=== PATIENT | female | born 1975 | race Hispanic/Latino ===

== ENCOUNTER → 2025-03-22 09:00 | Outpatient (CLI) | payer OTHER, SELFPAY ==
[2025-03-22 10:31] LABS: Add Manual Diff / Slide Review NO; Basophils Absolute Auto 0 /uL (0-100); Basophils Percent Auto 0.8 % (0-2); Eosinophils Absolute Auto 400 /uL (0-450); Eosinophils Percent Auto 5.7 % (2-4); Hematocrit 38.9 % (36-46); Hemoglobin 13.1 g/dL (12.0-16.0); Lymphocytes Absolute Auto 1600 /uL (1100-4500); Lymphocytes Percent Auto 25.3 % (25-40); Mean Corpuscular HGB Conc 33.6 % (30-36); Mean Corpuscular Hemoglobin 30.2 PG (26-34); Mean Corpuscular Volume 90.1 fL (80-100); Monocytes Absolute Auto 800 /uL (0-900); Monocytes Percent Auto 12.8 % (3-14); Neutrophils Absolute Auto 3600 /uL (1500-7000); Neutrophils Percent Auto 55.4 % (50-75); Platelet Count 250 X10^3/uL (150-400); Red Blood Cell Count 4.32 X10^6/uL (4.0-5.2); Red Cell Distribution Width 13.8 % (11.6-14.8); White Blood Cell Count 6.4 X10^3/uL (4.5-11.0)
[2025-03-22 10:49] LABS: C-Reactive Protein Quant 3.8 mg/dL (<1.0)
[2025-03-22 11:50] LABS: Erythrocyte Sedimentation Rate 46 MM/HR (0-20)
[2025-03-25 09:09] LABS: Aspergillus fumigatus IgE <0.10 kU/L (Class 0); Immunoglobulin E 74 IU/mL (6-495)
[2025-03-25 17:11] LABS: CCP Antibodies IgG/IgA 11 units (0-19)
[2025-03-26 09:36] LABS: ANA Screen, IFA Negative (.)
[2025-03-26 20:09] LABS: Antimyeloperoxidase Antibodies <0.2 units (0.0-0.9); Antiproteinase 3 Antibodies <0.2 units (0.0-0.9); Cytoplasmic C-ANCA <1:20 titer (Neg:<1:20); Perinuclear P-ANCA <1:20 titer (Neg:<1:20)
== END ==
PROVIDERS: PCP Family Medicine; Referring Provider Internal Medicine; Visit Provider Internal Medicine
DX: J45.40 Moderate persistent asthma, uncomplicated (principal); J47.1 Bronchiectasis with (acute) exacerbation; M06.00 Rheumatoid arthritis without rheumatoid factor, unspecified site
CPT/HCPCS: 36415; 82785; 83520; 85025; 85651; 86003; 86038; 86140; 86200; 86256